=== PATIENT | female | born 1980 ===

== ENCOUNTER 2025-05-28 11:31 | Day surgery (SDC) | payer OTHER ==
[2025-05-28] VITALS (21 sets, daily range): BP systolic 106–172; BP diastolic 75–117
[~2025-05-28] VITALS: Ht 166 cm; Wt 90.7 kg
[~2025-05-28 11:31] MED LIST: [UNRECOGNIZED DRUG - MIXTURE] PO
[2025-05-28] MEDS ORDERED: TRI-MILI 28 TA1 EACH PO (12:01)
--- NOTE | 2025-05-28 12:05 | NUR ---
History, Chart, Medications and Allergies reviewed before start of procedure. Patient up to Ambulate independently. Gait steady. Pre-Op teaching done. Pt verbalizes understanding. Patient confirms NPO status and agrees with scheduled surgery. Patient states colon prep results clear. Patient States Post-Procedure ride home has been arranged.
--- NOTE | 2025-05-28 12:39 | NUR ---
05/28/25 1239 Nikita Dunaway CONFIRMED AND REVIEWED H&P, MEDCICATIONS, ALLERGIES, MEDICAL HISTORY, RESPIRATORY HISTORY, VITAL SIGNS, 3-LEAD EKG, CONSENTS, AND PHYSICIAN ORDERS. PATIENT CONFIRMS NPO STATUS AND AGREES WITH SCHEDULED PROCEDURE. MONITOR INTACT WITH CONTINUOUS PULSE OXIMETRY, CAPNOGRAPHY, 3-LEAD EKG, INTERMITTENT BP. SUPPLEMENTAL O2 TO BE TITRATED THROUGHOUT PROCEDURE TO MAINTAIN O2 SATURATION ABOVE 90%. PATIENT DETERMINED TO BE ASA APPROPRIATE FOR PROPOFOL SEDATION PRIOR TO START OF PROCEDURE BY DR. SIMS.
--- NOTE | 2025-05-28 13:16 | NUR ---
REPORT RECEIVED FROM MIKAEL SHIPLEY. VSS. PT ON RA. PT [id number]&[id number]. PT ABLE TO REPOSITION SELF IN BED. PT REQUESTING PO FLUIDS AND TOLERATING THEM WELL. PT DENIES PAIN, NAUSEA OR OTHER DISCOMFORTS.
[2025-05-28] MEDS ORDERED: Ondansetron HCl 2 MG / ML 2ML Vial ONE (13:19)
== END 2025-05-28 13:39 | disposition home or self-care (01) ==
LOC: ORSCMMR 11:31 → ORD 12:30 → ORSCMMR 13:39
PROVIDERS: Family Medicine
PROC: 0DBP8ZX Excision of Rectum, Via Natural or Artificial Opening Endoscopic, Diagnostic (ICD-10-PCS; principal; 2025-05-28 12:30)
DX: Z12.11 Encounter for screening for malignant neoplasm of colon (principal); K62.1 Rectal polyp; K64.0 First degree hemorrhoids
CPT/HCPCS: 88305; J2405; J2704; J7120